=== PATIENT | male | born 1985 | race Caucasian/White ===

== ENCOUNTER 2020-10-04 11:30 | Emergency (ER) | payer OTHER ==
[~2020-10-04] VITALS: Ht 167.7 cm; Wt 59.0 kg
[2020-10-04] MEDS ORDERED: TETRACAINE 0.5% OPHTH SOLN 4 ML BTL (SINGLE DOSE ONLY) OP STA (12:06)
--- NOTE | 2020-10-04 12:07 | ED EENT ---
History of Present Illness General Chief Complaint: Eye Problems Stated Complaint: BURNING EYES | RUNNY NOSE | UNABLE TO SEE Source: patient History of Present Illness Date Seen by Provider: October 04, 2020 Time Seen by Provider: 11:33 Initial Comments 35-year-old male presenting with his son and friend after all three of them developed redness and irritation to their eyes. He states that the symptoms started after they were eating at [employer] and had one of the vents turned on and was blowing air on the table. They started having a burning sensation in her eyes. When they looked at the vents they felt like there was black mold around the vent and decided to leave. After getting home they were doing okay but then woke up with severe burning pain and eye irritation. 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 He had tried putting some potato peels on his eyes to help with the pain and irritation last night. However this morning when he woke up his eyes feel very dry anytime he tries to open them. As long as he keeps them closed he is doing fine. He cannot think of any other irritant that might of got into his eyes. He was concerned that maybe he had black mold or mildew in his eyes causing the symptoms. Timing/Duration: abrupt (Last night) Severity: severe Location: eye (R), eye (L) Prearrival Treatment: over the counter meds (Using Visine made it worse) Allergies and Home Medications Allergies Coded Allergies: No Known Drug Allergies (Unverified , 10/04/20) Home Medications Erythromycin Base 1 Gm Oint...g., 0 OP Q6H 1/2 inch Prescribed by: HYACINTH BARLOW on 10/04/20 1337 Patient Home Medication List Home Medication List Reviewed: Yes Review of Systems Review of Systems Constitutional: No chills, No fever Eyes: See HPI Ears: No Symptoms Reported Nose: congestion (from his tears and eye irritation) Mouth: no symptoms reported Throat: no symptoms reported Respiratory: No cough, No short of breath Cardiovascular: no symptoms reported Gastrointestinal: no symptoms reported Musculoskeletal: no symptoms reported Skin: no symptoms reported Neurological: Anxiety Past Rwzgdry-Mzbgfp-Oipjlw Hx Past Med/Social Hx: Reviewed Nursing Past Med/Soc Hx Patient Social History Alcohol Use: Denies Use Smoking Status: Current Everyday Smoker Type Used: Electronic/Vapor 2nd Hand Smoke Exposure: No Recent Hopitalizations: No Seasonal Allergies Seasonal Allergies: No Past Medical History Surgeries: Yes (Hernia as a child) Respiratory: No Cardiac: No Neurological: No Genitourinary: No Gastrointestinal: No Musculoskeletal: No Endocrine: No HEENT: No Cancer: No Psychosocial: No Integumentary: No Blood Disorders: No Physical Exam Vital Signs Vital Signs - First Documented 10/04/20 11:39 Temp 36.5 Pulse 89 Resp 16 B/P (MAP) 133/67 (89) Pulse Ox 99 O2 Delivery Room Air Height, Weight, BMI Height: '" Weight: lbs. oz. kg; BMI Method: General Appearance: moderate distress, other (anxious) Eyes: bilateral eye PERRL, bilateral eye EOMI, bilateral eye conjunctival inflammation Cardiovascular: normal peripheral pulses, regular rate, rhythm Respiratory: chest non-tender, lungs clear, normal breath sounds Neurologic/Psychiatric: alert, oriented x 3, other (anxious) Skin: normal color, warm/dry Procedures/Interventions Eye : Location: both eyes Anesthesia (gtts): Tetracaine Progress/Procedure Conclusion Both eyes evaluated with tetracaine and fluorescein using a black lamp. No abrasions or foreign bodies visualized using the magnification. Balance saline solution was used to irrigate his eyes. Progress/Results/Core Measures Results/Orders My Orders Orders - HYACINTH BARLOW MD Tetracaine 0.5% Ophth Kimberley Sdv (Tetracai (10/04/20 12:06) Fluorescein Strips (Hhels-P-Tbbeuc) (10/04/20 12:30) Fluorescein Strips (Tojlu-B-Ueocwq) (10/04/20 12:16) Balanced Salt Irrigation Soln (Bss Irrig (10/04/20 13:00) Medications Given in ED Current Medications Medications Dose Ordered Sig/Librado Route Start Time Stop Time Status Last Admin Dose Admin Balanced Salt Solution 15 ml ONCE ONCE IR 10/04/20 13:00 10/04/20 13:01 DC 10/04/20 12:57 15 ML Fluorescein Sodium 1 mg ONCE ONCE OU 10/04/20 12:30 10/04/20 12:31 DC 10/04/20 12:27 1 MG Vital Signs/I&O 10/04/20 10/04/20 11:39 13:40 Temp 36.5 36.5 Pulse 89 65 Resp 16 16 B/P (MAP) 133/67 (89) 96/44 (89) Pulse Ox 99 97 O2 Delivery Room Air Room Air Progress Progress Note : Progress Note No foreign bodies or abrasions seen with the tetracaine and fluorescein exam. Counseled to follow-up with eye doctor if not improving. Will treat symptomatically with cold packs and NSAIDs as well as using antibiotic ointment to help prevent secondary infection. The antibiotic ointment would also help coat his eye and help with some of the pain. Departure Impression Primary Impression: Chemical conjunctivitis of both eyes Disposition: HOME, SELF-CARE Condition: Stable Departure-Patient Inst. Decision time for Depature: 13:37 Referrals: JENNIFER HANKINS MD (PCP/Family) Primary Care Physician Patient Instructions: Conjunctivitis (Noninfectious Pinkeye) (DC) Add. Discharge Instructions: Use a cool wash rag to help keep your eyelids clean. You could also use an ice pack to help with irritation to your eyes. Use it for 10-15 minutes at a time as needed. May use a saline solution, such as contact solution, to rinse your eyes if needed for continued irritation. Use the antibiotic ointment to eyes to help prevent infection and coat surface of the eye so it is not so irritated. If having continued or worsening problems then check with Eye doctor for more formal exam All discharge instructions reviewed with patient and/or family. Voiced understanding. Scripts Erythromycin Base (Erythromycin Opthalmic Ointment) 1 Gm Oint...g. 0 OP Q6H for 5 Days, #1 TUBE 0 Refills 1/2 inch Prov: HYACINTH BARLOW MD 10/04/20 Images Eye 1 - 1 - Progress Both eyes examined conjunctivitis and eye irritation. No foreign bodies or fluorescein uptake for an abrasion seen on exam HYACINTH BARLOW MD October 04, 2020 12:07
[2020-10-04] MEDS ORDERED: FLUORESCEIN (FLUOR-I-STRIPS) 1 MG STRP ONE (12:16)
[2020-10-04] MEDS ORDERED: FLUORESCEIN (FLUOR-I-STRIPS) 1 MG STRP OU ONE (12:30)
[2020-10-04] MEDS ORDERED: BSS 15 ML IR ONE (13:00)
[2020-10-04] MEDS ORDERED: ERYT1OIN6 OP (13:37)
[2020-10-04 13:40] VITALS: BP 96/44
== END 2020-10-04 13:40 | disposition home or self-care (01) ==
LOC: ER FS 11:34
DX: H10.213 Acute toxic conjunctivitis, bilateral (principal); F17.290 Nicotine dependence, other tobacco product, uncomplicated
CPT/HCPCS: 99282